=== PATIENT | female | born 1935 | race Caucasian/White ===

== ENCOUNTER 2017-07-25 12:12 | Emergency (ER) | payer MEDICARE, MEDICAID ==
[~2017-07-25] VITALS: Ht 149.9 cm; Wt 102.1 kg
[~2017-07-25 12:12] MED LIST: ATOR20TA PO; ESOM40CA PO; METOPROLOL XL PO; VALE500C PO; VALS1TAB4 PO
[2017-07-25 12:22] VITALS: BP 150/79
[2017-07-25] MEDS ORDERED: AMOX/CLAVULANATE 875 MG TABLET PO ONE (12:30)
[2017-07-25] MEDS ORDERED: HYDROCODONE/APAP 5/325MG 1 EACH TABLET PO ONE (12:30)
[2017-07-25] MEDS ORDERED: HYDROCODONE/APAP 5/325MG 1 EACH TABLET ONE (12:30)
[2017-07-25] MEDS ORDERED: ONDANSETRON 4 MG TAB.RAPDIS SL ONE (12:30)
[2017-07-25] MEDS ORDERED: ONDANSETRON 4 MG TAB.RAPDIS ONE (12:31)
[2017-07-25] MEDS ORDERED: AMOX/CLAVULANATE 875 MG TABLET ONE (12:31)
== END 2017-07-25 12:42 | disposition home or self-care (01) ==
LOC: ER 12:14
DX: L02.512 Cutaneous abscess of left hand (principal); I10 Essential (primary) hypertension
CPT/HCPCS: 11740; 99284; A4606; Q0162; Z7610